=== PATIENT | female | born 1955 | race Caucasian/White ===

== ENCOUNTER 2018-09-21 17:51 | Emergency (ER) | payer BC ==
[2018-09-21] MEDS ORDERED: Sodium Chloride 0.9% 10 ML Syringe FLUSH PRN (18:31)
[2018-09-21] MEDS ORDERED: Ondansetron 4 MG/2 ML SDV IVPUSH ONE (18:31)
[2018-09-21] MEDS ORDERED: HYDROmorphone 1 MG/ML Syringe IVPUSH ONE ×4 (18:31→22:03)
--- NOTE | 2018-09-21 18:42 | EDM.PDOC ---
<Marlene Guevara M - Last Filed: 09/21/18 18:30> ED HPI GENERAL MEDICAL PROBLEM - General Chief Complaint: Upper Extremity Injury/Pain Stated Complaint: FELL ON RT SHOULDER Time Seen by Provider: 09/21/18 18:25 Source of Information: Reports: Patient, Family (sister Cheryl), RN Notes Reviewed History Limitations: Reports: No Limitations - History of Present Illness INITIAL COMMENTS - FREE TEXT/NARRATIVE: Luz Gibbs" is a 62 year old female who presents to the ED for evaluation of right arm pain after a fall at 17:30 today. Patient states she was carrying some items, tripped over the carpet and landed right onto her right shoulder. She denies that she hit her head or any LOC. She did hear and feel a "pop". She has terrible pain at the head of the humerus with discomfort down to the elbow. She states she had some numbness, tingling and weakness to the fingers on her right hand. She is right handed. She is rating her pain 10/10. She has a history of rotator cuff repair on the right shoulder about 16 years ago, she denies any hardware in her shoulder joint. She has no history of osteopetrosis. Her last meal was at 17:00. Right Shoulder Pain Score (Numeric/FACES): 10 - Related Data Allergies Allergy/AdvReac Type Severity Reaction Status Date / Time alcohol Allergy Rash Verified 09/21/18 18:01 [From Mastisol Adhesive] candesartan [From Atacand] Allergy Swelling Verified 09/21/18 18:01 ezetimibe [From Zetia] Allergy Cough Verified 09/21/18 18:01 gum mastic Allergy Rash Verified 09/21/18 18:01 [From Mastisol Adhesive] methyl salicylate Allergy Rash Verified 09/21/18 18:01 [From Mastisol Adhesive] pioglitazone [From Actos] Allergy Swelling Verified 09/21/18 18:01 storax Allergy Rash Verified 09/21/18 18:01 [From Mastisol Adhesive] Home Meds: Home Meds Albuterol [Ventolin HFA] 2 puff INH TID PRN 09/21/18 [History] Fenofibrate 54 mg PO DAILY 09/21/18 [History] Insulin Glargine,Hum.Rec.Anlog [Toujeo Solostar] 145 ml SUBCUT DAILY 09/21/18 [ History] Levothyroxine 50 mcg PO DAILY 09/21/18 [History] Levothyroxine 200 mcg PO DAILY 09/21/18 [History] Liraglutide [Victoza] 1.8 ml SUBCUT DAILY 09/21/18 [History] Rosuvastatin Calcium 20 mg PO DAILY 09/21/18 [History] Sertraline HCl 100 mg PO DAILY 09/21/18 [History] Spironolactone [Aldactone] 25 mg PO DAILY 09/21/18 [History] amLODIPine Besylate [Amlodipine Besylate] 5 mg PO DAILY 09/21/18 [History] hydroCHLOROthiazide [Hydrochlorothiazide] 25 mg PO DAILY 09/21/18 [History] metFORMIN HCl [Metformin HCl] 500 mg PO BID 09/21/18 [History] Past Medical History - Past Health History Medical/Surgical History: Denies Medical/Surgical History HEENT History: Reports: Impaired Vision Cardiovascular History: Reports: High Cholesterol, Hypertension Respiratory History: Reports: Asthma Gastrointestinal History: Reports: Cholelithiasis Musculoskeletal History: Reports: Arthritis, Other (See Below) Endocrine/Metabolic History: Reports: Diabetes, Type II Oncologic (Cancer) History: Reports: Malignant Melanoma, Thyroid - Infectious Disease History Infectious Disease History: Reports: Chicken Pox, Measles - Past Surgical History HEENT Surgical History: Reports: Tonsillectomy GI Surgical History: Reports: Cholecystectomy Musculoskeletal Surgical History: Reports: Shoulder Surgery Other Musculoskeletal Surgeries/Procedures:: rotator cuff right arm Social & Family History - Family History Family Medical History: Noncontributory - Tobacco Use Smoking Status *Q: Never Smoker - Caffeine Use Caffeine Use: Reports: Coffee, Soda - Recreational Drug Use Recreational Drug Use: No Review of Systems - Review of Systems Review Of Systems: ROS reveals no pertinent complaints other than HPI. ED EXAM, GENERAL - Physical Exam Exam: See Below Exam Limited By: No Limitations General Appearance: Alert, WD/WN, Moderate Distress, Obese Head: Atraumatic, Normocephalic Peripheral Pulses: 4+: Radial (L), Radial (R) Extremities: Normal Capillary Refill, Arm Pain (right shoulder has obvious bony deformity anteriorly. patient is unwilling to move the shoulder from the internally rotated position. ), Other (some tingling and weakness to the fingers of the right hand. 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 No: Ecchymosis, Erythema Course - Vital Signs Last Recorded V/S: Last Vital Signs Temp 97.5 F 09/21/18 18:12 Pulse 80 09/21/18 20:02 Resp 16 09/21/18 21:41 BP 181/80 H 09/21/18 20:02 Pulse Ox 90 L 09/21/18 21:41 - Orders/Labs/Meds Orders: Active Orders 24 hr Category Date Time Status Peripheral IV Care [RC] . DIRECTED Care 09/21/18 18:32 Active Shoulder 1V Rt [CR] Stat Exams 09/21/18 20:39 Taken Shoulder Comp Rt [CR] Stat Exams 09/21/18 18:31 Taken Sodium Chloride 0.9% [Saline Flush] Med 09/21/18 18:31 Active 10 ml FLUSH ASDIRECTED PRN Peripheral IV Insertion Adult [OM.PC] Routine Oth 09/21/18 18:31 Ordered Medication Orders Sodium Chloride (Saline Flush) 10 ml FLUSH ASDIRECTED PRN PRN Reason: Keep Vein Open Last Admin: 09/21/18 18:40 Dose: 10 ml Meds: Medications Generic Name Dose Route Start Last Admin Trade Name Freq PRN Reason Stop Dose Admin Sodium Chloride 10 ml 09/21/18 18:31 09/21/18 18:40 Saline Flush FLUSH 10 ml ASDIRECTED PRN Administration Keep Vein Open Discontinued Medications Generic Name Dose Route Start Last Admin Trade Name Freq PRN Reason Stop Dose Admin Hydromorphone HCl 1 mg 09/21/18 18:31 09/21/18 18:40 Dilaudid IVPUSH 09/21/18 18:32 1 mg ONETIME ONE Administration Hydromorphone HCl 0.5 mg 09/21/18 19:41 09/21/18 19:53 Dilaudid IVPUSH 09/21/18 19:42 0.5 mg ONETIME ONE Administration Ketamine HCl Confirm 09/21/18 20:14 Ketalar Administered 09/21/18 20:15 Dose 500 mg .ROUTE .STK-MED ONE Metoclopramide HCl 5 mg 09/21/18 19:43 09/21/18 19:51 Reglan IVPUSH 09/21/18 19:44 5 mg ONETIME ONE Administration Midazolam HCl Confirm 09/21/18 20:14 Versed 1 Mg/Ml Administered 09/21/18 20:15 Dose 2 mg .ROUTE .STK-MED ONE Ondansetron HCl 4 mg 09/21/18 18:31 09/21/18 18:40 Zofran IVPUSH 09/21/18 18:32 4 mg ONETIME ONE Administration Propofol Confirm 09/21/18 20:39 09/21/18 21:01 Diprivan 20 Ml Administered 09/21/18 20:40 Not Given Dose 200 mg .ROUTE .STK-MED ONE Propofol 15 mg 09/21/18 20:56 09/21/18 20:41 Diprivan 20 Ml IVPUSH 09/21/18 20:57 15 mg ONETIME ONE Administration Propofol 15 mg 09/21/18 20:57 09/21/18 20:43 Diprivan 20 Ml IVPUSH 09/21/18 20:58 15 mg ONETIME ONE Administration Propofol 15 mg 09/21/18 20:57 09/21/18 20:45 Diprivan 20 Ml IVPUSH 09/21/18 20:58 15 mg ONETIME ONE Administration Propofol 20 mg 09/21/18 20:58 09/21/18 20:50 Diprivan 20 Ml IVPUSH 09/21/18 20:59 20 mg ONETIME ONE Administration Departure - Departure Disposition: DC/Tfer to [facility] 02 Clinical Impression: Fracture of humerus, Anterior shoulder dislocation - Discharge Information Referrals: Romina Lucero MD [Primary Care Provider] - Forms: ED Department Discharge Additional Instructions: Patient transferred to [facility] in [place]. Dr. Puga accepting. Dr. Hooks [facility], aware of care. - My Orders Last 24 Hours: My Active Orders 09/21/18 18:31 Shoulder Comp Rt [CR] Stat Sodium Chloride 0.9% [Saline Flush] 10 ml FLUSH ASDIRECTED PRN Peripheral IV Insertion Adult [OM.PC] Routine 09/21/18 18:32 Peripheral IV Care [RC] . DIRECTED 09/21/18 20:39 Shoulder 1V Rt [CR] Stat - Assessment/Plan Last 24 Hours: My Active Orders 09/21/18 18:31 Shoulder Comp Rt [CR] Stat Sodium Chloride 0.9% [Saline Flush] 10 ml FLUSH ASDIRECTED PRN Peripheral IV Insertion Adult [OM.PC] Routine 09/21/18 18:32 Peripheral IV Care [RC] . DIRECTED 09/21/18 20:39 Shoulder 1V Rt [CR] Stat <Mary Ramirez - Last Filed: 09/21/18 22:02> ED HPI GENERAL MEDICAL PROBLEM - History of Present Illness INITIAL COMMENTS - FREE TEXT/NARRATIVE: I have seen the patient and agree with the HPI as documented by YENNY Matamoros Patient is right handed. She reports an "odd feeling" in her right arm but has sensation to light touch. No pain to the right elbow or wrist. No head trauma with the fall. Review of Systems - Review of Systems Review Of Systems: See Below Musculoskeletal: Reports: Shoulder Pain (right) Neurological: Reports: Tingling (right arm). Denies: Headache, Numbness, Syncope ED EXAM, GENERAL - Physical Exam Exam: See Below Exam Limited By: No Limitations General Appearance: Alert, WD/WN, Moderate Distress, Obese Respiratory/Chest: No Respiratory Distress, Lungs Clear, Normal Breath Sounds Cardiovascular: Normal Peripheral Pulses, Regular Rate, Rhythm, No Murmur Peripheral Pulses: 2+: Radial (R) Extremities: Normal Capillary Refill, Limited Range of Motion (deformity noted to the right shoulder, significant pain with any movement, ROM testing deferred due to pain; reports good sensation to light touch to the right arm) Neurological: Alert, Oriented, Normal Cognition Course - Radiology Interpretation Free Text/Narrative:: xray of the right shoulder shows an anterior dislocation xray of the right shoulder after unsuccessful reduction shows fracture of the greater tuberosity and continued anterior dislocation - Re-Assessments/Exams Free Text/Narrative Re-Assessment/Exam: 09/21/18 21:15 Attempted reduction with traction/counter traction as well as external rotation. 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 Patient received a total of 2 mg IV Versed, 1.5 mg/kg IV ketamine and 65 mg propofol, per Dr. Miguel Bower's instruction, and ultimately we were unable to successfully reduce the shoulder. Dr. Miguel Robles also attempted without success. Post reduction films showed fracture of the humeral head and continued anterior shoulder dislocation. Sling and swath applied. Discussed disposition as we do not have any ortho on-call. She would like to go [facility] in [place]. I discussed the case Dr. Hooks who will see the patient in the [place] ED. Dr. Puga, ED physician accepting. Departure - Departure Time of Disposition: 21:57 Condition: Fair - Discharge Information *PRESCRIPTION DRUG MONITORING PROGRAM REVIEWED*: No *COPY OF PRESCRIPTION DRUG MONITORING REPORT IN PATIENT DECLAN: No
[2018-09-21] MEDS ORDERED: Metoclopramide 10 MG/2 ML SDV IVPUSH ONE (19:43)
[2018-09-21] MEDS ORDERED: Ketamine 500 mg/10 ML MDV ONE (20:14)
[2018-09-21] MEDS ORDERED: Midazolam 1 MG/ML 2 ML SDV ONE (20:14)
[2018-09-21] MEDS ORDERED: Propofol 200 MG/20 ML SDV ONE (20:39)
[2018-09-21] MEDS ORDERED: Propofol 200 MG/20 ML SDV IVPUSH ONE ×4 (20:56→20:58)
--- NOTE | 2018-09-21 21:39 | PCM.PREANE ---
Preanesthetic Assessment - Procedure Proposed Procedure: Closed reduction Right dislocated shoulder - Anesthesia/Transfusion/Family Hx Anesthesia History: Prior Anesthesia Reaction Type of Anesthesia Reaction: Excessive Nausea/Vomiting Family History of Anesthesia Reaction: No Transfusion History: No Prior Transfusion(s) Additional History: Hx right rotator cuff surgery - Review of Systems General: No Symptoms Pulmonary: Other (EBONI with CPAP) Cardiovascular: Other (HTN, Hyperlipidemia ) Gastrointestinal: No Symptoms Neurological: No Symptoms Other: Reports: Thyroid Problems (hx thyroid cancer- total thyroidectomy ) - Physical Assessment NPO Status Date: 09/21/18 NPO Status Time: 17:00 (sausage and water ) O2 Sat by Pulse Oximetry: 90 Respiratory Rate: 16 Vital Signs: Last Vital Signs Temp 36.4 C 09/21/18 18:12 Pulse 80 09/21/18 20:02 Resp 16 09/21/18 20:02 BP 181/80 H 09/21/18 20:02 Pulse Ox 90 L 09/21/18 20:02 Height: 1.78 m Weight: 120.202 kg ASA Class: 2E Mental Status: Alert & Oriented x3 Airway Class: Mallampati = 2 Dentition: Reports: Normal Dentition Thyro-Mental Finger Breadths: 3 Mouth Opening Finger Breadths: 3 ROM/Head Extension: Full Lungs: Clear to Auscultation, Normal Respiratory Effort Cardiovascular: Regular Rate, Regular Rhythm, Murmurs (Patient stated she had been told she has a murmer for a long time. I recommended her to folow up with this after she gets her shoulder issue corrected.) - Allergies Allergies/Adverse Reactions: Allergies Allergy/AdvReac Type Severity Reaction Status Date / Time alcohol Allergy Rash Verified 09/21/18 18:01 [From Mastisol Adhesive] candesartan [From Atacand] Allergy Swelling Verified 09/21/18 18:01 ezetimibe [From Zetia] Allergy Cough Verified 09/21/18 18:01 gum mastic Allergy Rash Verified 09/21/18 18:01 [From Mastisol Adhesive] methyl salicylate Allergy Rash Verified 09/21/18 18:01 [From Mastisol Adhesive] pioglitazone [From Actos] Allergy Swelling Verified 09/21/18 18:01 storax Allergy Rash Verified 09/21/18 18:01 [From Mastisol Adhesive] - Blood Blood Available: No Product(s) Available: None - Anesthesia Plan Pre-Op Medication Ordered: None - Acknowledgements Anesthesia Type Planned: MAC (Patient and sister aware of the higher risk of aspiration with this sedation case beings patient has consumes sausage 3 hours prior. I told them (patient and sister) I will give a dose of medication in which the patient will not totally be unconscious and still able to protect her own airway but yet the pain will significantly be decreased but not eliminated. Patient and sister want to proceed with the procedure.) Pt an Appropriate Candidate for the Planned Anesthesia: Yes Alternatives and Risks of Anesthesia Discussed w Pt/Guardian: Yes Pt/Guardian Understands and Agrees with Anesthesia Plan: Yes PreAnesthesia Questionnaire - Past Health History Medical/Surgical History: Denies Medical/Surgical History HEENT History: Reports: Impaired Vision Cardiovascular History: Reports: High Cholesterol, Hypertension Respiratory History: Reports: Asthma Gastrointestinal History: Reports: Cholelithiasis Musculoskeletal History: Reports: Arthritis, Other (See Below) Endocrine/Metabolic History: Reports: Diabetes, Type II Oncologic (Cancer) History: Reports: Malignant Melanoma, Thyroid - Infectious Disease History Infectious Disease History: Reports: Chicken Pox, Measles - Past Surgical History HEENT Surgical History: Reports: Tonsillectomy GI Surgical History: Reports: Cholecystectomy Musculoskeletal Surgical History: Reports: Shoulder Surgery Other Musculoskeletal Surgeries/Procedures:: rotator cuff right arm - SUBSTANCE USE Smoking Status *Q: Never Smoker Recreational Drug Use History: No - HOME MEDS Home Medications: Home Meds Albuterol [Ventolin HFA] 2 puff INH TID PRN 09/21/18 [History] Fenofibrate 54 mg PO DAILY 09/21/18 [History] Insulin Glargine,Hum.Rec.Anlog [Cyn Roth] 145 ml SUBCUT DAILY 09/21/18 [ History] Levothyroxine 50 mcg PO DAILY 09/21/18 [History] Levothyroxine 200 mcg PO DAILY 09/21/18 [History] Liraglutide [Victoza] 1.8 ml SUBCUT DAILY 09/21/18 [History] Rosuvastatin Calcium 20 mg PO DAILY 09/21/18 [History] Sertraline HCl 100 mg PO DAILY 09/21/18 [History] Spironolactone [Aldactone] 25 mg PO DAILY 09/21/18 [History] amLODIPine Besylate [Amlodipine Besylate] 5 mg PO DAILY 09/21/18 [History] hydroCHLOROthiazide [Hydrochlorothiazide] 25 mg PO DAILY 09/21/18 [History] metFORMIN HCl [Metformin HCl] 500 mg PO BID 09/21/18 [History] - CURRENT (IN HOUSE) MEDS Current Meds: Current Medications Sodium Chloride (Saline Flush) 10 ml FLUSH ASDIRECTED PRN PRN Reason: Keep Vein Open Last Admin: 09/21/18 18:40 Dose: 10 ml Discontinued Medications Hydromorphone HCl (Dilaudid) 1 mg IVPUSH ONETIME ONE Stop: 09/21/18 18:32 Last Admin: 09/21/18 18:40 Dose: 1 mg Hydromorphone HCl (Dilaudid) 0.5 mg IVPUSH ONETIME ONE Stop: 09/21/18 19:42 Last Admin: 09/21/18 19:53 Dose: 0.5 mg Ketamine HCl (Ketalar) Confirm Administered Dose 500 mg .ROUTE .STK-MED ONE Stop: 09/21/18 20:15 Metoclopramide HCl (Reglan) 5 mg IVPUSH ONETIME ONE Stop: 09/21/18 19:44 Last Admin: 09/21/18 19:51 Dose: 5 mg Midazolam HCl (Versed 1 Mg/Ml) Confirm Administered Dose 2 mg .ROUTE .STK-MED ONE Stop: 09/21/18 20:15 Ondansetron HCl (Zofran) 4 mg IVPUSH ONETIME ONE Stop: 09/21/18 18:32 Last Admin: 09/21/18 18:40 Dose: 4 mg Propofol (Diprivan 20 Ml) Confirm Administered Dose 200 mg .ROUTE .STK-MED ONE Stop: 09/21/18 20:40 Last Admin: 09/21/18 21:01 Dose: Not Given Propofol (Diprivan 20 Ml) 15 mg IVPUSH ONETIME ONE Stop: 09/21/18 20:57 Last Admin: 09/21/18 20:41 Dose: 15 mg Propofol (Diprivan 20 Ml) 15 mg IVPUSH ONETIME ONE Stop: 09/21/18 20:58 Last Admin: 09/21/18 20:43 Dose: 15 mg Propofol (Diprivan 20 Ml) 15 mg IVPUSH ONETIME ONE Stop: 09/21/18 20:58 Last Admin: 09/21/18 20:45 Dose: 15 mg Propofol (Diprivan 20 Ml) 20 mg IVPUSH ONETIME ONE Stop: 09/21/18 20:59 Last Admin: 09/21/18 20:50 Dose: 20 mg
--- NOTE | 2018-09-21 21:57 | PCM48HPAN ---
Post Anesthesia Note - EVALUATION WITHIN 48HRS OF ANESTHETIC Vital Signs in Normal Range: Yes (Hypertensive but at her pre-procedure baseline ) Patient Participated in Evaluation: Yes Respiratory Function Stable: Yes Airway Patent: Yes Cardiovascular Function Stable: Yes (Hypertensive) Hydration Status Stable: Yes Pain Control Satisfactory: Yes (Yes- despite her current condition ) Nausea and Vomiting Control Satisfactory: Yes Mental Status Recovered: Yes (Patient facetiming with family and sister) Pulse Rate: 89 SaO2: 93 Resp Rate: 18 Temperature: 36.9 C Blood Pressure: 174/84
--- NOTE | 2018-09-22 08:26 | CR ---
Right shoulder: Single AP view of the right shoulder was obtained. Comparison: Previous right shoulder study performed earlier on same day (7:05 PM). Continuing anterior and inferior dislocation is seen with fracture involving the base of the greater tuberosity. No additional abnormalities seen. Impression: 1. Fracture and dislocation remains. Diagnostic code #3
--- NOTE | 2018-09-22 08:26 | CR ---
Right shoulder: Two views of the right shoulder were obtained. Comparison: No prior shoulder exam. Dislocation is noted with humeral head being dislocated inferior and anteriorly. Fracture appears to be present within the greater tuberosity. Degenerative change is seen within the acromioclavicular joint. Impression: 1. Fracture and dislocation as noted above. Diagnostic code #3
== END 2018-09-21 22:35 ==
LOC: JD.ED 17:51
DX: S42.251A Displaced fracture of greater tuberosity of right humerus, initial encounter for closed fracture (principal); E78.00 Pure hypercholesterolemia, unspecified; W18.30XA Fall on same level, unspecified, initial encounter; I10 Essential (primary) hypertension; E11.9 Type 2 diabetes mellitus without complications; J45.909 Unspecified asthma, uncomplicated; Z79.84 Long term (current) use of oral hypoglycemic drugs; Z88.8 Allergy status to other drugs, medicaments and biological substances; Z79.899 Other long term (current) drug therapy
CPT/HCPCS: 23650; 73020; 73030; 96374; 96375; 96376; 99152; 99153; 99285; J1170; J2250; J2405; J2704; J2765; 01620; 99284

== ENCOUNTER 2023-03-04 22:37 | Emergency (ER) | payer MEDICARE, OTHER ==
[2023-03-04 23:01] LABS: BASOPHILS ABSOLUTE AUTO 0.02 K/mm3 (0.01-0.08); BASOPHILS PERCENT AUTO 0.1 % (0.1-1.2); EOSINOPHILS ABSOLUTE AUTO 0.15 K/mm3 (0.04-0.36); EOSINOPHILS PERCENT AUTO 0.8 (0.7-5.8); HEMATOCRIT 40.4 % (34.1-44.9); HEMOGLOBIN 13.4 gm/dl (11.2-15.7); IMMATURE GRAN ABSOLUTE AUTO 0.42 K/mm3 (0.00-0.10); IMMATURE GRAN PERCENT AUTO 2.1 % (<=1.0); LYMPHOCYTES ABSOLUTE AUTO 1.38 K/mm3 (1.18-3.74); MEAN CORPUSCULAR HEMOGLOBIN 27.8 pg (25.6-32.2); MEAN CORPUSCULAR HGB CONC 33.2 g/dl (32.2-35.5); MEAN CORPUSCULAR VOLUME 83.8 fl (79.4-94.8); MEAN PLATELET VOLUME 9.3 fl (9.4-12.3); MONOCYTES ABSOLUTE AUTO 0.97 K/mm3 (0.24-0.36); MONOCYTES PERCENT AUTO 4.9 % (4.7-12.5); NEUTROPHILS ABSOLUTE AUTO 16.78 K/mm3 (1.56-6.13); NEUTROPHILS PERCENT AUTO 85.1 % (34.0-71.1); PLATELET COUNT,PLT 534 K/mm3 (182-369); RED BLOOD CELL COUNT 4.82 M/mm3 (3.98-5.22); WHITE BLOOD CELL COUNT,WBC 19.72 K/mm3 (3.98-10.04)
[2023-03-04 23:23] LABS: A/G RATIO 0.6 (1-2); ANION GAP 13.3 (5-15); BILIRUBIN TOTAL 0.2 mg/dL (0.2-1.0); CALCIUM 9.1 mg/dL (8.5-10.1); EST CRCL DRUG DOSING (CG) 59.03 mL/min; POTASSIUM,K 4.3 mEq/L (3.5-5.1); PROTEIN TOTAL,TP 7.7 g/dl (6.4-8.2)
[2023-03-05] MEDS ORDERED: cefTRIAXone 2 GM in Sodium Chloride 0.9% 100 ML IV ONE (00:06)
[2023-03-05 00:24] LABS: APPEARANCE,URINE SLT CLOUDY (Clear); BILIRUBIN,URINE NEGATIVE (Negative); COLOR,URINE YELLOW (Yellow); GLUCOSE,URINE NEGATIVE (Negative); KETONES,URINE NEGATIVE (Negative); LEUKOCYTE ESTERASE,URINE 2+ (Negative); NITRITE,URINE POSITIVE (Negative); OCCULT BLOOD,URINE NEGATIVE (Negative); PROTEIN,URINE 1+ (Negative); UROBILINOGEN,URINE 0.2 (0.2-1.0)
[2023-03-05] MEDS ORDERED: Ondansetron 4 MG/2 ML SDV IVPUSH ONE (00:32)
[2023-03-05] MEDS ORDERED: Morphine 2 MG/ML SYRINGE IVPUSH ONE (00:32)
[2023-03-05 00:40] LABS: RBC,URINE 0-5 /hpf (0-5)
[2023-03-05 00:41] LABS: BACTERIA,URINE MANY /hpf (FEW); MUCUS,URINE FEW /hpf (FEW); SQUAMOUS EPITHELIAL CELLS,UR 0-5 /hpf (0-5); WBC CLUMPS,URINE FEW /hpf (NOT SEEN); WBC,URINE 75-100 /hpf (0-5)
== END 2023-03-05 01:45 | disposition home or self-care (01) ==
LOC: JD.ED 22:37
DX: S00.03XA Contusion of scalp, initial encounter (principal); N39.0 Urinary tract infection, site not specified; E78.00 Pure hypercholesterolemia, unspecified; I10 Essential (primary) hypertension; J45.909 Unspecified asthma, uncomplicated; E11.9 Type 2 diabetes mellitus without complications; M19.90 Unspecified osteoarthritis, unspecified site; Z88.8 Allergy status to other drugs, medicaments and biological substances; Z79.899 Other long term (current) drug therapy; Z79.84 Long term (current) use of oral hypoglycemic drugs; W01.198A Fall on same level from slipping, tripping and stumbling with subsequent striking against other object, initial encounter; Y92.129 Unspecified place in nursing home as the place of occurrence of the external cause
CPT/HCPCS: 36415; 70450; 71045; 72125; 80053; 81001; 83605; 85025; 87040; 96365; 96375; 99284; J0696; J2270; J2405; J3490

== ENCOUNTER 2024-02-03 16:29 | Emergency (ER) | payer MEDICARE, OTHER ==
[2024-02-03] MEDS: Acetaminophen 325 MG Tab PO ONE (18:05)
== END 2024-02-03 19:05 | disposition home or self-care (01) ==
LOC: JD.ED 16:29
DX: S40.011A Contusion of right shoulder, initial encounter (principal); I10 Essential (primary) hypertension; E11.9 Type 2 diabetes mellitus without complications; E03.9 Hypothyroidism, unspecified; Z88.8 Allergy status to other drugs, medicaments and biological substances; Z79.84 Long term (current) use of oral hypoglycemic drugs; Z79.899 Other long term (current) drug therapy; Z90.49 Acquired absence of other specified parts of digestive tract; Z87.891 Personal history of nicotine dependence; W19.XXXA Unspecified fall, initial encounter
CPT/HCPCS: 73030; 73060; 99283; A9270; 99282